=== PATIENT | female | born 1970 | race Caucasian/White ===

== ENCOUNTER 2021-11-05 13:25 | Outpatient (CLI) | payer OTHER | END 2021-11-05 13:26 | disposition home or self-care (01) | LOC: DTY/OP 13:25 | PROVIDERS: ATTEND Family Medicine | DX: E66.01 Morbid (severe) obesity due to excess calories (principal); Z98.84 Bariatric surgery status | CPT/HCPCS: 97802 ==

== ENCOUNTER 2025-01-19 11:06 | Outpatient (CLI) | payer OTHER | END 2025-01-19 11:07 | disposition home or self-care (01) | LOC: SCSRAD 11:06 | PROVIDERS: ATTEND Family Medicine | DX: R05.9 Cough, unspecified (principal) | CPT/HCPCS: 71046 ==